=== PATIENT | female | born 1990 | race Caucasian/White ===

== ENCOUNTER 2021-06-20 19:38 | Emergency (ER) | payer SELFPAY ==
[~2021-06-20] VITALS: Ht 157.5 cm; Wt 59.0 kg
[2021-06-20] MEDS ORDERED: ONDANSETRON HCL/PF 4 MG/2 ML VIAL ONE (20:29)
[2021-06-20 20:50] LABS: BASOPHILS % (AUTO) 0.4 % (0.0-2.0); EOSINOPHILS % (AUTO) 0.4 % (0.0-6.0); HEMATOCRIT 40 % (33-45); HEMOGLOBIN 13.6 g/dL (11.5-14.8); LYMPHOCYTES # (AUTO) 2.4 K/uL (0.8-4.8); LYMPHOCYTES % (AUTO) 39.3 % (20.0-44.0); MEAN CORPUSCULAR HGB CONC 34 g/dl (31.0-36.0); MEAN CORPUSCULAR VOLUME 90 fL (82-100); MONOCYTES # (AUTO) 0.4 K/uL (0.1-1.30); MONOCYTES % (AUTO) 6.6 % (2.0-12.0); NEUTROPHILS # (AUTO) 3.3 K/uL (1.8-8.9); NEUTROPHILS % (AUTO) 53.3 % (43.0-81.0); PLATELET COUNT (AUTO) 276 K/uL (150-450); RED BLOOD CELL COUNT(AUTO) 4.41 MIL/uL (4.0-5.2); WHITE BLOOD COUNT (AUTO) 6.2 K/uL (4.3-11.0)
--- NOTE | 2021-06-20 20:57 | NUR ---
[facility]IR[facility] [employer] [facility], TO ER BED 10. INTOXICATED. NOT IN RESP DISTRESS. BREOUGHT IN FOR VOMMITING AFTER THE PT HAS BEEN DRINKING. PER PT'S , THEY WERE IN A [employer] [facility] HAVING DRINKS AND SHE IS NOT USE TO DRINKING. STARTED VOMMITNG. PT WAS NOTED WITH LOW BP 82/51. WAS AT THE BEDSIDE FOR EVAL. ORDERS RECEIVED, NOTED AND CARRIED OUT. IV LINE ESTALISSHED ON THE R WRSIT 20G, BLOOD DRAWN AND SENT TO LAB
[2021-06-20 20:58] LABS: CREATININE 0.7 mg/dL (0.6-1.3); POTASSIUM 3.4 mmol/L (3.5-5.1)
[2021-06-20] MEDS ORDERED: ONDANSETRON HCL/PF 4 MG/2 ML VIAL IVP ONE (21:00)
[2021-06-20] MEDS ORDERED: IV NS 0.9% 1,000 ML BAG IV ONE (21:00)
--- NOTE | 2021-06-20 22:44 | NUR ---
IV removed. Catheter intact and site benign. Pressure and 4x4 applied to site. No bleeding noted.
--- NOTE | 2021-06-20 22:45 | NUR ---
PT IS DISCHARGED UNDER THE CARE OF HER IN STABLE CONDITION.. PT WAS ASSISTED TO HER CAR ON A WHEELCHAIR. NAD NOTED
[2021-06-20 22:48] VITALS: BP 98/63
== END 2021-06-20 22:49 | disposition home or self-care (01) ==
LOC: ER 19:41
DX: F10.129 Alcohol abuse with intoxication, unspecified (principal); R11.10 Vomiting, unspecified; Y90.7 Blood alcohol level of 200-239 mg/100 ml
CPT/HCPCS: 36415; 80048; 80320; 85025; 96361; 96374; 99283; J2405; J7030; G0480